=== PATIENT | male | born 1980 | race Caucasian/White ===

== ENCOUNTER 2025-09-08 19:19 | Emergency (ER) | payer OTHER, SELFPAY ==
--- NOTE | ~2025-09-08 | XR_ITS ---
XR foot RT min 3V INDICATION: pain; dorsum, SWELLING TO WHOLE FOOT, NKI . COMPARISON: None. FINDINGS: Frontal, lateral and oblique views of the right foot were obtained. There is no acute fracture or dislocation. IMPRESSION: Radiographic examination of the right foot demonstrates no acute fracture or dislocation. Reviewed, dictated and finalized at location [employer] IMPRESSION: Radiographic examination of the right foot demonstrates no acute fracture or di slocation.
[2025-09-08 19:22] VITALS: BP 144/78; PULSE 98; RESP 20; TEMP 36.5; O2SAT 98
--- NOTE | 2025-09-08 19:45 | ED.LOWEXIN ---
HPI - Extremity Injury (Lower) General Chief Complaint: Extremity Injury, Lower Stated Complaint: right foot pain Time Seen by Provider: 09/08/25 19:32 Source: patient Mode of arrival: ambulatory Limitations: no limitations History of Present Illness HPI Narrative: Patient presents with report of right pain going on for the past 3 weeks causing pain with walking. No injury or trauma that he knows of. The swelling has worsened causing it become difficult for him to put issue on. He has been using Tylenol p.m. for pain and has trialed elevating in applying ice and using a compression stocking. No fevers or chills. No history of heart failure. Not on a diuretic. He states nothing like this has ever happened before. No history of MRSA and denies IV drug use. His PCP is in [facility] where he lives. He is in the area for work. Related Data Allergies Allergy/AdvReac Type Severity Reaction Status Date / Time No Known Allergies Allergy Verified 09/08/25 19:30 [facility] Social History Social History Social History: Lives in [place] Substance use type: does not use Other substance usage details: denies IVDU Exam Narrative: GENERAL: Well-appearing, well-nourished, and in no acute distress. HEAD: Normocephalic, atraumatic. EYES: Non injected, non icteric ENT: Nares clear, no rhinorrhea or epistaxis. Gross auditory acuity intact. NECK: Supple. No meningismus. CHEST: Speaking in full sentences. No respiratory distress. HEART: Regular rate and rhythm. . ABDOMEN: Soft, nondistended. No rigidity or guarding. Not peritoneal EXTREMITIES: Normal range of motion. Right 1+ pedal edema; dorsal aspect warm and tender to palpation. SKIN: Warm, dry ; right foot erythematous with extension up into ankle/distal tib/fib without distinct borders/not well circumscribed. Skin otherwise intact; no appreciable laceration/abrasion/ulceration along dorsum or plantar aspect of foot or between toes, etc. Contralateral foot does not appear similarly. NEURO: No focal deficits. Alert and oriented. Answering questions. Following commands. Normal speech without aphasia or dysarthria. PSYCH: Normal mood and affect. Course Vital Signs Vital signs: Vital Signs Temperature 97.7 F 09/08/25 19:22 Pulse Rate 98 09/08/25 19:22 Respiratory Rate 20 09/08/25 19:22 Blood Pressure 144/78 H 09/08/25 19:22 Pulse Oximetry 98 09/08/25 19:22 Oxygen Delivery Room Air 09/08/25 19:22 Temperature 97.7 F 09/08/25 19:22 Pulse Rate 98 09/08/25 19:22 Respiratory Rate 20 09/08/25 19:22 Blood Pressure 144/78 H 09/08/25 19:22 Pulse Oximetry 98 09/08/25 19:22 Oxygen Delivery Room Air 09/08/25 19:22 MDM - Extremity Injury (Lower) MDM Narrative Medical decision making narrative: 45-year-old male presents with right foot pain of 3 weeks duration. In the emergency department he is afebrile with acceptable vital signs, mild hypertension. Leukocytosis. ESR normal. CRP normal. BNP normal. D dimer elevated. I discussed with the patient that although this looks like cellulitis, would recommend he proceed with US study to rule out DVT, especially given he travels. He verifies understanding and is in agreement. He was given 1st dose of antibiotic as well as dose of anticoagulation. Confirmed with Xray scheduling that the 7am time slot is avaialble tomorrow morning. Patient provided written Rx for [id number] analgesics medication, rest of course of antibiotic, and order for ultrasound study. Differential Diagnosis Differential diagnosis: Likely other (cellulitis; heart failure; osteomyelitis; electrolyte abnormalities; zoster; DVT) Lab Data Attestation: I reviewed the patient's lab results. 09/08/25 20:03 09/08/25 20:03 Labs: Lab Results 09/08/25 Range/Units 20:03 WBC 14.0 H (4.5-10.0) K/mm3 RBC 5.23 (4.6-6.20) M/mm3 Hgb 16.2 (14.0-18.0) g/dL Hct 46.7 (42.0-52.0) % MCV 89.3 (80-100) fl MCH 31.0 (26-34) pg MCHC 34.7 (32-36) g/dl RDW 12.5 (11.5-14.5) % Plt Count 257 (150-375) k/mm3 MPV 10.2 (7.4-10.4) fl Immature Gran % (Auto) 1.1 H (0-0.5) % Neut % (Auto) 56.5 (45.5-73.1) % Lymph % (Auto) 30.5 (18.3-44.2) % [place] % (Auto) 9.4 H (2.6-8.5) % Eos % (Auto) 1.9 (0-4.4) % Baso % (Auto) 0.6 (0.2-1.2) % Lymph # (Auto) 4.28 H (0.9-3.2) K/mm3 [place] # (Auto) 1.3 H (0.1-0.6) K/mm3 Eos # (Auto) 0.3 (0-0.3) K/mm3 Baso # (Auto) 0.1 (0.0-0.1) K/mm3 Abs Immat Gran (auto) 0.16 H (0.00-0.031) K/mm3 Absolute Neuts (auto) 7.9 H (1.3-6.7) K/mm3 Absolute Nucleated RBC 0.000 (0.0-0.012) K/mm3 Nucleated RBC % 0.0 (0.0-0.2) % ESR 4 (0-20) mm/hr PT 13.1 (11.1-14.7) Seconds INR 1.0 APTT 38.6 H (22.3-36.8) Seconds D-Dimer 0.77 H (<0.48) ug/mL Sodium 138 (137-145) mmol/L Potassium 4.1 (3.4-5.0) mmol/L Chloride 103 (98-107) mmol/L Carbon Dioxide 27 (22-30) mmol/L Anion Gap 8 (4-12) mmol/L BUN 18 (9-20) mg/dL Creatinine 0.97 (0.7-1.3) mg/dL Estim Creat Clear Calc 128 ml/min Estimated GFR > 60 (59 - ) Glucose 119 H (65-110) mg/dL Calcium 9.3 (8.4-10.2) mg/dL C-Reactive Protein 0.7 (<1.0) mg/dL NT-Pro-B Natriuret Pep < 20 (19.9-100) pg/mL Imaging Data Radiologist's impression: Impressions Foot X-Ray 09/08/25 20:25 IMPRESSION: Radiographic examination of the right foot demonstrates no acute fracture or dislocation. Discharge Plan Discharge Clinical Impression: Pedal edema, Leukocytosis, Elevated d-dimer, Cellulitis of foot, right Patient Disposition: Home Condition: Stable Instructions: Antibiotic Form, Cellulitis (ED), Leukocytosis (ED), Leg Edema (ED) Additional Instructions: As we discussed it appears that you cellulitis which is an infection of the skin. You received your 1st dose of antibiotic in the rest of the course has been prescribed. However, your D dimer was also elevated and given you travel which increases your risk, do recommend you proceed with getting the ultrasound study. You are scheduled for tomorrow 09/09/25 at 7am at outpatient [facility]. Follow up with your primary care physician back home in [place]. Return to the ED with any new/worsening symptoms. You received a one time dose of the blood thinner in case you have a blood clot/DVT (deep vein thrombosis). It is important if you get in a car accident or fall in the next 24 hours that you notify EMS personnel that you were given a dose of Xarelto. Acetaminophen/Tylenol (maximum 4000 mg per day) is safe to take with NSAIDs (ibuprofen/Motrin) for pain relief. Patient Language: Mongolian Prescriptions: New cephalexin 500 mg tablet 500 mg PO QID 5 Days Qty: 19 0RF Rx Instructions: rec'd first dose in ED ibuprofen 600 mg tablet 600 mg PO TID PRN (Reason: pain) Qty: 30 0RF acetaminophen 500 mg capsule 1,000 mg PO Q6H PRN (Reason: pain) Qty: 30 0RF Other Ambulatory Orders: US venous doppler LE RT (Routine) Timeframe: [id number] Facility: [facility] - [place] [facility] [place] [facility] Ordered By: Mary Heard Follow-up/Referrals: UNKNOWN,DOCTOR [Non-Staff] Stand Alone Forms: Work/School Release IP Time of Disposition: 20:54
[2025-09-08] MEDS: HYDROcodone/acetaminophen (*CRX) 5-325 MG TABLET 1 TAB PO (19:55)
[2025-09-08 20:14] LABS: Hematocrit 46.7 % (42.0-52.0); Hemoglobin 16.2 g/dL (14.0-18.0); Immature Granulocyte Percent A 1.1 % (0-0.5); Lymphocytes Absolute Auto 4.28 K/mm3 (0.9-3.2); Mean Corpuscular HGB Conc 34.7 g/dl (32-36); Mean Corpuscular Hemoglobin 31.0 pg (26-34); Mean Corpuscular Volume 89.3 fl (80-100); Nucleated Red Blood Cells Absolute Auto 0.000 K/mm3 (0.0-0.012); Nucleated Red Blood Cells Perc 0.0 % (0.0-0.2); Platelet Count Result 257 k/mm3 (150-375); Red Blood Count 5.23 M/mm3 (4.6-6.20); White Blood Count 14.0 K/mm3 (4.5-10.0)
[2025-09-08 20:28] LABS: INR 1.0; Prothrombin Time 13.1 Seconds (11.1-14.7)
[2025-09-08 20:29] LABS: Partial Thromboplastin Time 38.6 Seconds (22.3-36.8)
[2025-09-08 20:37] LABS: Anion Gap 8 mmol/L (4-12); Blood Urea Nitrogen 18 mg/dL (9-20); CRP 0.7 mg/dL (<1.0); Calcium 9.3 mg/dL (8.4-10.2); Carbon Dioxide 27 mmol/L (22-30); Chloride 103 mmol/L (98-107); Estimated CRCL calculation 128 ml/min; Estimated Glomerular Filt Rate > 60; Glucose 119 mg/dL (65-110); Potassium 4.1 mmol/L (3.4-5.0); Sodium 138 mmol/L (137-145)
[2025-09-08 20:38] LABS: NT Pro B Type Natriuretic Pept < 20 pg/mL (19.9-100)
[2025-09-08] MEDS: RIVAROXABAN 15 MG TABLET PO (20:55)
[2025-09-08] MEDS: CEPHALEXIN 500 MG CAPSULE PO (20:56)
[2025-09-08 21:07] VITALS: BP 142/80; PULSE 98; RESP 20; O2SAT 99
== END 2025-09-08 21:10 | disposition home or self-care (01) ==
PROVIDERS: Emergency Provider Student in an Organized Health Care Education/Training Program
DX: L03.115 Cellulitis of right lower limb (principal); R60.0 Localized edema; D72.829 Elevated white blood cell count, unspecified; R79.1 Abnormal coagulation profile
CPT/HCPCS: 36415; 73630; 80048; 83880; 85025; 85380; 85610; 85652; 85730; 86140; 99283; A9270

== ENCOUNTER 2025-09-09 07:51 | Outpatient (CLI) | payer OTHER, SELFPAY ==
--- NOTE | ~2025-09-09 | US_ITS ---
EXAMINATION: US venous doppler LE RT, 09/09/2025 8:11 INSTRUMENTATION CHEMIST HISTORY: R79.89 - Other specified abnormal findings of blood chemi... COMPARISON: None Technique: Pacheco-scale and color Doppler images were attempted of the lower saphenofemoral junction, common femoral vein,superficial femoral vein, proximal deep femoral vein, proximal deep femoral vein, popliteal vein and posterior tibial veins. Findings: Deep Venous System:Normal flow, augmentation and compressibility. No echogenic thrombus identified. Superficial Venous SystemNo superficial thrombophlebitis. Soft tissues: Soft tissues are unremarkable. Impression: Negative for DVT. Reviewed, dictated and finalized at location P. RUMENTATION CHEMIST Impression: Negative for DVT.
== END 2025-09-09 07:52 | disposition home or self-care (01) ==
PROVIDERS: Visit Provider Student in an Organized Health Care Education/Training Program
DX: R79.89 Other specified abnormal findings of blood chemistry (principal); R60.0 Localized edema
CPT/HCPCS: 93971